=== PATIENT | female | born 1950 | race Caucasian/White ===

== ENCOUNTER 2016-09-13 20:01 | Emergency (ER) | payer OTHER ==
[~2016-09-13] VITALS: Ht 167.6 cm; Wt 96.1 kg
[~2016-09-13 20:01] MED LIST: BACT800T5 PO; METO100T9 PO; XANA1TAB6 PO
[2016-09-13 20:51] VITALS: BP 137/81; PULSE 77; RESP 18; TEMP 97.9; O2SAT 96
[2016-09-13 21:27] VITALS: BP 137/81; PULSE 77; RESP 18; TEMP 97.9; O2SAT 96
--- NOTE | 2016-09-13 21:28 | PD ---
HPI Chief Complaint: Musculoskeletal Complaint Time Seen by Provider: 21:20 Travel History International Travel<30 days: No Contact w/Intl Traveler<30days: No History of Present Illness HPI 66-year-old female with PMH of hypertension presents to the ED for evaluation of 12 hour history of 5/10 right-sided back pain that radiates down the outer aspect of the right leg and right sided biceps and elbow pain. Onset this morning after carrying her 25 pound dog. She states that she twisted some way and injured her back. She endorses history of previous similar episodes of back pain. She denies numbness, tingling, weakness, limitations to range of motion of either extremity. She denies saddle anesthesia, foot drop, incontinence. She treated at home by wrapping the arm and using a over-the- counter numbing medication with no improvement of symptoms. PFSH Past Medical History Anxiety: Yes High Cholesterol: Yes Diminished Hearing: No Hypertension: Yes Immunizations Current: Yes Menopausal: Yes Past Surgical History Tonsillectomy: Yes Social History Alcohol Use: No Tobacco Use: Yes (1/2 PPD) Substance Use: No Allergies-Medications (Allergen,Severity, Reaction): Coded Allergies: No Known Allergies (Unverified , 02/16/16) Reported Meds & Prescriptions Reported Meds & Active Scripts Active Ibuprofen 800 Mg Tab 800 Mg PO Q8H Flexeril (Cyclobenzaprine HCl) 10 Mg Tab 10 Mg PO TID Bactrim DS (Sulfamethoxazole-Trimethoprim DS) 1 Tab Tab 1 Tab PO BID Reported Metoprolol Succinate ER 100 mg (Metoprolol Succinate) 100 Mg Tab 50 Mg PO DAILY Xanax 1 mg (Alprazolam) Alprazolam 1 mg Tab 1 Tab PO DAILY Review of Systems Except as stated in HPI: all other systems reviewed are Neg Physical Exam Narrative GENERAL: Well-nourished, well-developed white female in no acute distress. SKIN: Warm and dry. HEAD: Normocephalic. EYES: No scleral icterus. No injection or drainage. NECK: Supple, trachea midline. No JVD or lymphadenopathy. CARDIOVASCULAR: Regular rate and rhythm without murmurs, gallops, or rubs. RESPIRATORY: Breath sounds equal bilaterally. No accessory muscle use. GASTROINTESTINAL: Abdomen soft, non-tender, nondistended. MUSCULOSKELETAL: No cyanosis, or edema. Focused right lower extremity exam: 2+ DP pulse. Mild tenderness to palpation of the right buttock and sciatic notch. No anterior lateral hip pain. Strength 5/5 dorsiflexion, plantar flexion, hip flexion, knee flexion. Neurovascularly intact. Focused right upper extremity exam: 2+ radial pulse. Mild tenderness to palpation of the deltoid and biceps. No pain elicited with abduction or extension of the shoulder. Strength 5/5 in all muscle groups. 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 BACK: Nontender without obvious deformity. No CVA tenderness. No midline tenderness to palpation. Data Data Last Documented VS Vital Signs Date Time Temp Pulse Resp B/P Pulse Ox O2 Delivery O2 Flow Rate FiO2 09/13/16 21:27 97.9 77 18 137/81 96 Orders Ibuprofen (Motrin) (09/13/16 21:30) Cyclobenzaprine (Flexeril) (09/13/16 21:30) [facility] Medical Decision Making Medical Screen Exam Complete: Yes Emergency Medical Condition: Yes Differential Diagnosis Sciatica versus lumbago versus musculoskeletal pain versus muscle strain versus other Narrative Course 66-year-old female presents to the ED for evaluation of 12 hour history of 5/10 right-sided back pain that radiates down the outer aspect of the right leg and right sided bicep and elbow pain. Onset this morning after carrying her 25 pound dog. She states that she twisted some way and injured her back. She endorses history of previous similar episodes of back pain. She denies numbness , tingling, weakness, limitations to range of motion of either extremity. She denies saddle anesthesia, foot drop, incontinence. Vitals reviewed. Physical exam reveals a well-appearing white female in no acute distress. There is some tenderness of the right buttock and sciatic notch and some tenderness of the right biceps and deltoid but the physical exam is otherwise unremarkable. No deficits of strength. Neurovascularly intact. This is sciatica and muscle strain. Patient was prescribed 800 mg ibuprofen and Flexeril 3 times a day. First dose administered in the ED. She is instructed to rest, ice, elevate the right extremity, returned normal, gentle activities as tolerated, take medications as prescribed, follow up with the primary care provider. She indicated understanding of the instructions and was amenable to plan of care. This patient is stable and discharged home. Diagnosis Primary Impression: Back pain with right-sided sciatica Additional Impression: Biceps muscle strain Qualified Code: S46.111A - Biceps muscle strain, right, initial encounter Referrals: Primary Care Physician Patient Instructions: General Instructions, Muscle Strain (ED), Sciatica (ED) Additional Instructions: Normal, gentle activity interspersed with periods of rest is best for back pain. Rest, ice, elevate the arm. Gentle compression of the arm with an SIMONA wrap starting distally and working towards the heart may help to reduce pain and swelling. Apply ice no longer than 10-15 minutes per hour a few times a day. 800 mg ibuprofen 3 times a day as prescribed. Flexeril 3 times a day as needed for muscle spasm. Do not drive if taking Flexeril. Return to normal, gentle activity as tolerated. No heavy lifting, overexertion of the arm for the next week. Follow up with orthopedist or your primary care provider as discussed Return to the ED for any urgent or emergent medical condition. Med/Other Pt SpecificInfo: Prescription(s) given Scripts Ibuprofen 800 Mg [id number] Mg PO Q8H #15 TAB Ref 0 Prov:Sebastian Guerra MD 09/13/16 Cyclobenzaprine (Flexeril)10 Mg Tab10 Mg PO TID #12 TAB Ref 0 Prov:Sebastian Guerra MD 09/13/16 Disposition: 01 DISCHARGE HOME Condition: Stable Stella Canchola Sep 13, 2016 21:28
[2016-09-13] MEDS ORDERED: CYCL1TAB29 PO (21:29)
[2016-09-13] MEDS ORDERED: IBUP800T23 PO (21:29)
[2016-09-13] MEDS ORDERED: IBUPROFEN 800 MG TAB PO ONE (21:30)
[2016-09-13] MEDS ORDERED: CYCLOBENZAPRINE HCL 10 MG TAB PO ONE (21:30)
== END 2016-09-13 21:45 | disposition home or self-care (01) ==
LOC: PHEFT 20:01
DX: M54.31 Sciatica, right side (principal)
CPT/HCPCS: 99283

== ENCOUNTER 2017-02-15 16:28 | Emergency (ER) | payer OTHER ==
[~2017-02-15] VITALS: Ht 167.6 cm; Wt 99.3 kg
[~2017-02-15 16:28] MED LIST changes: +CYCL1TAB29 PO; +IBUP800T23 PO
[2017-02-15 16:37] VITALS: BP 161/78; PULSE 77; RESP 18; TEMP 97.9; O2SAT 97
[2017-02-15] MEDS ORDERED: METO100T9 PO (17:10)
[2017-02-15] MEDS ORDERED: XANA1TAB2 PO (17:10)
--- NOTE | 2017-02-15 17:32 | PD ---
HPI Chief Complaint: Pain: Acute or Chronic Time Seen by Provider: 17:10 Travel History International Travel<30 days: No Contact w/Intl Traveler<30days: No Traveled to known affect area: No History of Present Illness HPI 66-year-old female with chief complaint of right low back pain radiating down into the leg. Patient has history of sciatica. She reports this pain is similar to her sciatica in the past. She reports she saw her PCP this week who prescribed her meloxicam and a muscle relaxer. She reports minimal improvement with those medications. She reports the pain is preventing her from sleeping. She reports the pain as constant, radiating from the low back down the posterior portion of her buttocks and thigh into the foot. She denies numbness/ weakness/tingling in the extremity. She denies incontinence, fever, chills. Pain severity 7/10. No aggravating or alleviating factors. PFSH Past Medical History Hx Anticoagulant Therapy: No Anxiety: Yes Cardiovascular Problems: No High Cholesterol: Yes Chemotherapy: No Cerebrovascular Accident: No Diabetes: No Diminished Hearing: No Hypertension: Yes Musculoskeletal: Yes Respiratory: No Immunizations Current: Yes Tetanus Vaccination: < 5 Years Influenza Vaccination: Yes ?: Not Menopausal: Yes Tubal Ligation: Yes Past Surgical History Hysterectomy: No Tonsillectomy: Yes Other Surgery: Yes Social History Alcohol Use: No Tobacco Use: Yes (/2 PPD) Substance Use: No Allergies-Medications (Allergen,Severity, Reaction): Coded Allergies: No Known Allergies (Unverified , 02/15/17) Reported Meds & Prescriptions Reported Meds & Active Scripts Active Ibuprofen 800 Mg Tab 800 Mg PO Q8H Reported Xanax (Alprazolam) 1 Mg Tab 1 Mg PO BID PRN Metoprolol Succinate ER 24 HR (Metoprolol Succinate) 100 Mg Tab 100 Mg PO DAILY Review of Systems Except as stated in HPI: all other systems reviewed are Neg General / Constitutional: No: Fever Eyes: No: Visual changes HENT: No: Headaches Cardiovascular: No: Chest Pain or Discomfort Respiratory: No: Shortness of Breath Gastrointestinal: No: Abdominal Pain Genitourinary: No: Dysuria Physical Exam Narrative GENERAL: Alert, well-appearing female no acute distress SKIN: Focused skin assessment warm/dry. HEAD: Atraumatic. Normocephalic. EYES: Pupils equal and round. No scleral icterus. No injection or drainage. ENT: No nasal bleeding or discharge. Mucous membranes pink and moist. NECK: Trachea midline. No JVD. CARDIOVASCULAR: Regular rate and rhythm. No murmur appreciated. RESPIRATORY: No accessory muscle use. Clear to auscultation. Breath sounds equal bilaterally. GASTROINTESTINAL: Abdomen soft, non-tender, nondistended. Hepatic and splenic margins not palpable. MUSCULOSKELETAL: No obvious deformities. No clubbing. No cyanosis. No edema. BACK: No CVA tenderness. No rash. No point tenderness on palpation of the spine. TTP over the right-sided lumbar sacral musculature. Positive right- sided straight leg raise at 45 NEUROLOGICAL: Awake and alert. No obvious cranial nerve deficits. Motor grossly within normal limits. Normal speech. Dorsiflex and plantarflex intact. 5 out of 5 strength in lower extremities. PSYCHIATRIC: Appropriate mood and affect; insight and judgment normal. Data Data Last Documented VS Vital Signs Date Time Temp Pulse Resp B/P Pulse Ox O2 Delivery O2 Flow Rate FiO2 02/15/17 17:00 02/15/17 16:37 97.9 77 18 97 [facility] Medical Decision Making Medical Screen Exam Complete: Yes Emergency Medical Condition: Yes Differential Diagnosis Sciatica, lumbar strain, SI joint pain Narrative Course 66-year-old female with a history of sciatica reports intermittent right sided sciatic pain over the last month. Patient reports the last week the pain has increased causing her to be unable to sleep. She saw her PCP who put her on meloxicam and muscle relaxer. She reports only minimal symptom improvement with these meds. Her physical exam is reassuring and consistent with sciatica. Patient will be prescribed Ultram and instructed to follow-up with her primary doctor. Patient verbalizes understanding and agrees to plan Diagnosis Primary Impression: Back pain with right-sided sciatica Referrals: Primary Care Physician Additional Instructions: Take the pain medicine as prescribed. Alternate heat and ice as discussed. Continue the NSAIDs. Follow-up with her primary doctor for recheck this week. Return to emergency department if he developed new or worsening symptoms. Disposition: 01 DISCHARGE HOME Condition: Stable Malu Esposito Jake ALVARENGA Feb 15, 2017 17:32
[2017-02-15] MEDS ORDERED: ULTR50TA5 PO (17:33)
[2017-02-15] MEDS ORDERED: KETOROLAC TROMETHAMINE 60 MG/2 ML (IM) VIAL IM ONE (17:45)
== END 2017-02-15 17:44 | disposition home or self-care (01) ==
LOC: PHED 16:28
DX: M54.41 Lumbago with sciatica, right side (principal); F17.200 Nicotine dependence, unspecified, uncomplicated; I10 Essential (primary) hypertension
CPT/HCPCS: 99283